=== PATIENT | female | born 1950 | race Hispanic/Latino ===

== ENCOUNTER 2019-08-09 17:28 | Inpatient (IN) | payer OTHER, MEDICARE ==
[~2019-08-09] VITALS: Ht 165.1 cm; Wt 63.0 kg
[2019-08-09] MEDS ORDERED: METRONIDAZOLE 500MG/NS 100ML 100 ML IV STA (18:15)
[2019-08-09] MEDS ORDERED: SODIUM CHLORIDE 0.9% 1000ML 1,000 ML IV STA ×2 (18:18)
[2019-08-09] MEDS ORDERED: MORPHINE SULFATE 2 MG/ML SYR 1ML IV NR (18:30)
[2019-08-09] MEDS ORDERED: ONDANSETRON HCL INJ 2MG/ML 2ML 2 MG/ML VIAL IV NR (18:30)
[2019-08-09] MEDS ORDERED: CIPROFLOXACIN 400 MG/D5W 200ML 200 ML IV ONE (18:30)
[2019-08-09 18:47] LABS: BASOPHILS % 0.4 % (0.0-1.0); EOSINOPHILS # (AUTO) 0.2 (0.0-0.4); EOSINOPHILS % 2.1 % (0.0-6.0); HEMATOCRIT 33.7 % (34.2-44.1); HEMOGLOBIN 11.4 g/dL (12.0-16.0); LYMPHOCYTES # (AUTO) 1.8 (1.0-3.2); LYMPHOCYTES % 25.8 % (18.0-39.1); MEAN CORPUSCULAR HEMOGLOBIN 29.3 pg (28-32); MEAN CORPUSCULAR HGB CONC 33.8 g/dL (31-35); MEAN CORPUSCULAR VOLUME 86.6 fL (81-99); MONOCYTES # (AUTO) 0.4 (0.2-0.8); MONOCYTES % 5.5 % (4.4-11.3); NEUTROPHILS # (AUTO) 4.7 (2.1-6.9); NEUTROPHILS % 65.9 % (38.7-80.0); PLATELET COUNT 238 x10e3/uL (140-360); RED BLOOD COUNT 3.89 x10e6/uL (3.6-5.1); RED CELL DISTRIBUTION WIDTH 12.2 % (11.7-14.4)
[2019-08-09 18:51] LABS: INR 0.95; PROTHROMBIN TIME 13.2 seconds (11.9-14.5)
[2019-08-09 18:52] LABS: PARTIAL THROMBOPLASTIN TIME 35.9 seconds (23.8-35.5)
--- NOTE | 2019-08-09 18:58 | Diagnostic Imaging Report ---
EXAMINATION: CHEST SINGLE (PORTABLE) INDICATION: ^ERMD ORDER ^[id number] ^1840 ^Y COMPARISON: None FINDINGS: AP view TUBES and LINES: None. LUNGS: Lungs are well inflated. Mild central vascular congestion. Minimal left basilar subsegmental atelectasis. PLEURA: No significant pleural effusion or pneumothorax. HEART AND MEDIASTINUM: The cardiac silhouette is mildly prominent. Thickening of the right paratracheal stripe. BONES AND SOFT TISSUES: No acute osseous lesion. Soft tissues are unremarkable. UPPER ABDOMEN: No free air under the diaphragm. IMPRESSION: Mild central vascular congestion. Mild left basilar subsegmental atelectasis. Signed by: Dr. Cecilio Silva MD on 08/09/2019 6:54 PM
[2019-08-09 19:01] LABS: ALANINE AMINOTRANSFERASE 13 IU/L (0-55); ALBUMIN 3.8 g/dL (3.5-5.0); ALBUMIN/GLOBULIN RATIO 1.2 (0.8-2.0); ALKALINE PHOSPHATASE 54 IU/L (40-150); ANION GAP 11.9 mmol/L (8-16); BLOOD UREA NITROGEN 10 mg/dL (7-26); BUN/CREATININE RATIO 12 (6-25); CALCIUM 9.1 mg/dL (8.4-10.2); CARBON DIOXIDE 24 mmol/L (22-29); CHLORIDE 103 mmol/L (98-107); CREATINE KINASE 77 IU/L (29-168); CREATININE, SERUM 0.85 mg/dL (0.57-1.11); EST GLOMERULAR FILTRATION RATE > 60 ML/MIN (60-); GLUCOSE 97 mg/dL (74-118); LIPASE 22 U/L (8-78); MAGNESIUM 1.9 MG/DL (1.3-2.1); POTASSIUM 3.9 mmol/L (3.5-5.1); SODIUM 135 mmol/L (136-145)
--- OUTSIDE RECORDS SUMMARY | 2019-08-09 19:11 | XMS REPORT ---
Author Author [facility] Address Unknown Phone Unavailable Care Team Providers Care Emr Analyst Name Role Phone RODERICK CR Unavailable Unavailable Problems This patient has no known problems. Allergies, Adverse Reactions, Alerts This patient has no known allergies or adverse reactions. Medications This patient has no known medications. Encounters Start Date/Time End Date/Time Encounter Type Admission Type Attending Clinicians Care Facility Care Department Encounter ID 2019-08-06 15:05:00 2019-08-06 15:05:00 Emergency E [id number] Results Test Description Test Time Test Comments Text Results Atomic Results Result Comments CHEST SINGLE (PORTABLE) 2019-08-09 18:53:[address] [address] Patient Name: FLETCHER ZULUAGA MR #: [id number] : 1950 Age/Sex: 68/F Req #: [id number] Adm Physician: Ordered by: SHAYE MARSH, RODERICK MARSH Report #: [id number] Location: ER Room/Bed: Procedure: [id number] DX/CHEST SINGLE (PORTABLE) Exam Date: 08/09/19 Exam Time: 1839 REPORT STATUS: Signed EXAMINATION: CHEST SINGLE (PORTABLE) IND ICATION: ERMD ORDER [id number] Y COMPARISON: None FINDINGS: AP view TUBES and LINES: None. LUNGS: Lungs are well inflated. Mild central vascular congestion. Minimal left basilar subsegmental atelectasis. PLEURA: No significant pleural effusion or pneumothorax. HEART AND MEDIASTINUM: The cardiac silhouette is mildly prominent. Thickening of the right paratracheal stripe. BONES AND SOFT TISSUES: No acute osseous lesion. Soft tissues are unremarkable. UPPER ABDOMEN: No free air under the diaphragm. IMPRESSION: Mild central vascular congestion. Mild left basilar subsegmental atelectasis. Signed by: Dr. Cecilio Schaefer MD on 08/09/2019 6:54 PM Dictated By: CECILIO SCHAEFER MD 53 Transcribed By: LITA on 08/09/191853 COPY TO: RODERICK CR
[2019-08-09] MEDS ORDERED: CIPROFLOXACIN 400 MG/D5W 200ML 200 ML IV SCH (19:30)
[2019-08-09 20:00] VITALS: BP 130/58
--- NOTE | 2019-08-09 20:28 | Diagnostic Imaging Report ---
EXAM: CT Abdomen and Pelvis WITH contrast INDICATION: Rectal pain. ^IV AND ORAL ^[id number] ^1958 COMPARISON: None. TECHNIQUE: Abdomen and pelvis were scanned utilizing a multidetector helical scanner from the lung base to the pubic symphysis after administration of IV contrast. Coronal and sagittal reformations were obtained. Dose modulation, iterative reconstruction, and/or weight based adjustment of the mA/kV was utilized to reduce the radiation dose to as low as reasonably achievable. Routine protocol was performed. Scan was performed when during portal venous phase. IV CONTRAST: 100 mL of Isovue-370 ORAL CONTRAST: Water COMPLICATIONS: None RADIATION DOSE: Total DLP: 240.34 mGy*cm Estimated effective dose: (DLP x 0.015 x size factor) mSv CTDIvol has been reviewed. It is below the limits set by the Radiation Protocol Committee (RPC). FINDINGS: LINES and TUBES: None. LOWER THORAX: Small bilateral pleural effusions partially seen lingular atelectasis/scarring. HEPATOBILIARY: Hepatomegaly. No hepatic mass. 1.5 cm segment 4 hypodensity, probably a cyst. No biliary ductal dilation. GALLBLADDER: No radio-opaque stones or sludge. No wall thickening. SPLEEN: No splenomegaly. Tiny calcified granulomas. PANCREAS: No focal masses or ductal dilatation. ADRENALS: No adrenal nodules KIDNEYS/URETERS: Absent left kidney. Right kidney is unremarkable. No hydronephrosis or stones. Midpole subcentimeter hypodensity is too small to characterize. GI TRACT: No abnormal distention or evidence of bowel obstruction. Mild lower rectal wall thickening with adjacent fat stranding (series 2, image 71). Appendix is not visualized. Small hiatal hernia. PELVIC ORGANS/BLADDER: Unremarkable. LYMPH NODES: No lymphadenopathy. VESSELS: Unremarkable. PERITONEUM / RETROPERITONEUM: No free air. Trace pelvic free fluid. BONES: Unremarkable. SOFT TISSUES: Right perineal focus of air versus a seton (series 2, image 84) with adjacent soft tissue thickening. No discrete fluid collection to suggest abscess formation. IMPRESSION: 1. Mild lower rectal wall thickening with adjacent minimal fat stranding , could represent proctitis in the appropriate clinical context. Otherwise, no acute inflammatory process in the abdomen/pelvis. 2. Right perineal focus of air versus a seton with adjacent soft tissue thickening. No discrete fluid collection to suggest abscess formation. 3. Absent left kidney. 4. Small bilateral pleural effusions as well as a trace pelvic free fluid. 5. Small hiatal hernia. Signed by: Dr. Cecilio Silva MD on 08/09/2019 8:24 PM
[2019-08-09 20:40] VITALS: BP 130/58
--- NOTE | 2019-08-09 20:40 | NUR ---
Patient arrived via stretcher to the unit accompanied by her . Patient is A&Ox3 and walking around room. Received report from LOKESH Cho nurse. Call light within reach.
[2019-08-09 20:56] VITALS: BP 130/58
[2019-08-09 20:56] LABS: BILIRUBIN,URINE NEGATIVE (NEGATIVE); CLARITY,URINE SL CLOUDY (CLEAR); COLOR,URINE YELLOW (YELLOW); KETONES,URINE TRACE (NEGATIVE); LEUKOCYTE ESTERASE ,URINE NEGATIVE (NEGATIVE); NITRITE,URINE NEGATIVE (NEGATIVE); PROTEIN,URINE DIPSTICK NEGATIVE (NEGATIVE); URINE UROBILINOGEN 0.2 mg/dL (0.2 - 1)
[2019-08-09 21:08] LABS: BACTERIA,URINE MODERATE /HPF; EPITHELIAL CELLS,URINE FEW /LPF
[2019-08-09] MEDS: SODIUM CHLORIDE 0.9% 1000ML 1,000 ML IV SCH (21:30)
[2019-08-09] MEDS: ONDANSETRON HCL INJ 2MG/ML 2ML 2 MG/ML VIAL IV PRN (21:30)
[2019-08-09] MEDS: MORPHINE SULFATE 2 MG/ML SYR 1ML IV PRN (21:30)
[2019-08-09] MEDS ORDERED: IOPAMIDOL 370 MG/ML 200 ML INFUS..BTL INJ ONE (22:06)
[2019-08-09] MEDS ORDERED: SODIUM CHLORIDE 0.9% 50ML 50 ML ONE (22:06)
--- NOTE | 2019-08-09 22:50 | NUR ---
Called and talked to Dr. Rachel Weber about the consult and he said to call Dr. Rivera because Dr. Rivera is covering for him. Called Dr. Rivera office and waiting for him to call back
[2019-08-09] MEDS ORDERED: PRAVASTATIN SOD20 MG (23:02)
[2019-08-09] MEDS ORDERED: LEVOTHYROXINE88 MCG (23:02)
[2019-08-09] MEDS ORDERED: FANAPT8 MG PO (23:02)
[2019-08-09] MEDS: METRONIDAZOLE 500MG/NS 100ML 100 ML IV SCH (23:51)
[2019-08-10] VITALS (8 sets, daily range): BP systolic 114–140; BP diastolic 51–88
[2019-08-10] MEDS: SODIUM CHLORIDE 0.9% 1000ML 1,000 ML IV SCH ×3 (04:40→18:37)
[2019-08-10] MEDS: CIPROFLOXACIN 400 MG/D5W 200ML 200 ML IV SCH ×2 (05:35→17:17)
[2019-08-10 05:41] LABS: BASOPHILS % 0.6 % (0.0-1.0); EOSINOPHILS # (AUTO) 0.2 (0.0-0.4); EOSINOPHILS % 3.3 % (0.0-6.0); HEMATOCRIT 31.9 % (34.2-44.1); HEMOGLOBIN 10.7 g/dL (12.0-16.0); LYMPHOCYTES # (AUTO) 1.8 (1.0-3.2); LYMPHOCYTES % 24.8 % (18.0-39.1); MEAN CORPUSCULAR HEMOGLOBIN 29.5 pg (28-32); MEAN CORPUSCULAR HGB CONC 33.5 g/dL (31-35); MEAN CORPUSCULAR VOLUME 87.9 fL (81-99); MONOCYTES # (AUTO) 0.5 (0.2-0.8); MONOCYTES % 6.7 % (4.4-11.3); NEUTROPHILS # (AUTO) 4.6 (2.1-6.9); NEUTROPHILS % 64.3 % (38.7-80.0); PLATELET COUNT 225 x10e3/uL (140-360); RED BLOOD COUNT 3.63 x10e6/uL (3.6-5.1); RED CELL DISTRIBUTION WIDTH 12.2 % (11.7-14.4)
[2019-08-10 06:02] LABS: ALANINE AMINOTRANSFERASE 12 IU/L (0-55); ALBUMIN 3.3 g/dL (3.5-5.0); ALBUMIN/GLOBULIN RATIO 1.1 (0.8-2.0); ALKALINE PHOSPHATASE 49 IU/L (40-150); ANION GAP 10.7 mmol/L (8-16); BLOOD UREA NITROGEN 7 mg/dL (7-26); BUN/CREATININE RATIO 9 (6-25); CALCIUM 8.3 mg/dL (8.4-10.2); CARBON DIOXIDE 23 mmol/L (22-29); CHLORIDE 107 mmol/L (98-107); CREATININE, SERUM 0.79 mg/dL (0.57-1.11); EST GLOMERULAR FILTRATION RATE > 60 ML/MIN (60-); GLUCOSE 92 mg/dL (74-118); LIPASE 9 U/L (8-78); POTASSIUM 3.7 mmol/L (3.5-5.1); SODIUM 137 mmol/L (136-145)
[2019-08-10] MEDS: METRONIDAZOLE 500MG/NS 100ML 100 ML IV SCH ×3 (06:41→18:56)
--- NOTE | 2019-08-10 07:11 | NUR ---
Gave report to oncoming nurse. Call light within reach. Patient in bed.
--- NOTE | 2019-08-10 07:40 | NUR ---
PATIENT IS AWAKE, ALERT, AND IN STABLE CONDITION WITH NO S/S OF RESPIRATORY DISTRESS. PATIENT C/O RECTUM PAIN 04/30. IV FLUIDS INFUSING. BED ALARM APPLIED. CALL LIGHT IS WITHIN REACH OF PATIENT, PATIENT INSTRUCTED TO CALL FOR ASSISTANCE NEEDED.
[2019-08-10] MEDS: ONDANSETRON HCL INJ 2MG/ML 2ML 2 MG/ML VIAL IV PRN ×2 (08:25→15:00)
[2019-08-10] MEDS: MORPHINE SULFATE 2 MG/ML SYR 1ML IV PRN ×2 (08:26→15:00)
[2019-08-10] MEDS: FANAPT 8 MG PO SCH (17:17)
[2019-08-10] MEDS ORDERED: PEG (High)/E-LYTE SOLN 4,000 ML BTL PO ONE (18:00)
[2019-08-10 19:04] LABS: FERRITIN 131.19 ng/mL (4.63-204.00)
--- NOTE | 2019-08-10 19:17 | NUR ---
PATIENT IS IN STABLE CONDITION WITH NO S/S OF RESPIRATORY DISTRESS. NO PAIN VOICED. IV ANTIBIOTIC INFUSING. BED ALARM ON. CALL LIGHT IS WITHIN REACH, PATIENT INSTRUCTED TO CALL FOR ASSISTANCE NEEDED. REPORT GIVEN TO ONCOMING NURSE.
[2019-08-10] MEDS: PRAVASTATIN 20 MG TAB PO SCH (21:45)
--- NOTE | 2019-08-10 22:11 | History and Physical ---
PRIMARY CARE PHYSICIAN: Dr. Mendoza with [facility]. CHIEF COMPLAINT: Rectal pain. HISTORY OF PRESENT ILLNESS: This is a 68-year-old female with past medical history of high cholesterol, hypothyroidism, and paranoid schizophrenia, presented with rectal pain that has been present for six days. She initially went to [facility], was given Preparation-H and remedies for hemorrhoid and was sent home. The pain and symptoms did not improve, so she went to see her PCP, Dr. Mendoza yesterday evening and was instructed to come to the ER for further evaluation. She denies any fever, chills, melena, abdominal pain, nausea, or vomiting. In the ER, CT abdomen and pelvis showed mild lower rectal wall thickening with adjacent minimal fat stranding that could represent proctitis. GI has been consulted and admitted for further evaluation. PAST MEDICAL HISTORY: 1. Hypothyroidism. 2. High cholesterol. 3. Paranoid schizophrenia. PAST SURGICAL HISTORY: 1. x2. 2. Cyst removal. 3. Jaw surgery. 4. Appendectomy. 5. Tubal ligation. FAMILY MEDICAL HISTORY: Reports father had diabetes and mother had heart disease. SOCIAL HISTORY: She denies any tobacco, alcohol, or drug use. ALLERGIES: NO KNOWN ALLERGIES. REVIEW OF SYSTEMS: GENERAL: Fatigue. HEENT: No head trauma. LUNGS: No shortness of breath or cough. CARDIOVASCULAR: No chest pain or palpitations. GI: No nausea, vomiting. Has rectal pain, especially when moving bowels. NEURO: No dizziness. SKIN: No rash. PHYSICAL EXAMINATION: VITAL SIGNS: Temperature 98.9, pulse is 56, respirations 18, blood pressure 114/51, pulse ox is 98% on room air. GENERAL: No acute distress. HEENT: Normocephalic, atraumatic. NECK: Supple. LUNGS: Clear to auscultation. CARDIOVASCULAR: Regular rate and rhythm. GI: Abdomen soft and nontender. Rectal pain, constant. NEUROLOGIC: Alert, awake, and oriented x3. MUSCULOSKELETAL: Moves all extremities. SKIN: Dry and intact. PSYCH: Calm. LABORATORY DATA: WBC 7.06, hemoglobin 10.7, and hematocrit 31.9, and platelet is 225. Sodium is 137, potassium is 3.7, creatinine is 0.79, estimated GFR is greater than 60. Coagulation PT is 13.2, INR is 0.95, APTT is 35.9. UA, clarity is cloudy with trace ketones, no leukocyte esterase with moderate bacteria. Microbiology, urine culture is pending. IMAGING: Chest x-ray, mild central vascular congestion and basilar subsegmental atelectasis. CT abdomen and pelvis as reported above with possible proctitis. Also noted right perineal focus of air versus seton with adjacent soft tissue thickening. No discrete fluid collection to suggest abscess formation. Absent left kidney. Small bilateral pleural effusion and small hiatal hernia noted. IMPRESSION AND PLAN: 1. Rectal pain. Continue on Cipro and Flagyl. We will manage pain as needed with morphine [address] with possible proctitis. GI on the case. We will continue clear liquid diet. 2. Hypothyroidism. We will resume home dose of levothyroxine 88 mcg. 3. High cholesterol. Continue statin. 4. Paranoid schizophrenia. We will resume home medicine Fanapt 8 mg b.i.d. 5. Deep vein thrombosis prophylaxis. We will not indicated ambulatory. Plan, pending GI eval. Dictated by ZARINA Gomez Tracy Nava MD MY/MODL /[id number]
[2019-08-11] VITALS (8 sets, daily range): BP systolic 126–150; BP diastolic 64–95
--- NOTE | 2019-08-11 00:08 | Consultation ---
DATE OF CONSULTATION: HISTORY OF PRESENT ILLNESS: Ms. Ames is a 68-year-old lady with history of hyperlipidemia, hypothyroidism, schizophrenia, came to the hospital few days ago when she started having rectal bleed, constant. No blood per rectum. No change in bowel habit. No chills or fever. No nausea or vomiting. No abdominal pain. No weight loss recently. No heartburn or acid reflux. She had CT scan of the abdomen, pelvic with contrast revealed rectal wall thickening and possible proctitis and I will see her for evaluation. CURRENT MEDICATIONS: 1. Zofran. 2. Morphine. 3. Flagyl. 4. Cipro. 5. Levothyroxine. ALLERGIES: NIL. PAST SURGICAL HISTORY: Two , appendectomy, left breast biopsy. SOCIAL HISTORY: Does not smoke or drink. PHYSICAL EXAMINATION: On exam, hemodynamically stable, afebrile. LABORATORY DATA: White cell count 7, hemoglobin 11, hematocrit 32, platelet 225. Comprehensive panel normal. Urinalysis normal. Urine culture is still pending. IMPRESSION: Rectal discomfort, abnormal rectal wall thickening on CT scan, possible proctitis. We will plan for colonoscopy in the morning. No other workup as far as the mild anemia. We will order iron studies, RBC, folate, reticulocyte count, B12. She may need upper GI tract evaluation, which can be done as an outpatient. Hailey Rivera MD RD/MODL /[id number]
--- NOTE | 2019-08-11 00:20 | NUR ---
Pt is taking golytely.has bowel movement.bed locked and in lowest position.phone and call light within reach.instructed to call for assistance as needed.
[2019-08-11] MEDS: METRONIDAZOLE 500MG/NS 100ML 100 ML IV SCH ×4 (00:31→19:45)
[2019-08-11] MEDS: SODIUM CHLORIDE 0.9% 1000ML 1,000 ML IV SCH ×3 (03:22→18:05)
[2019-08-11] MEDS: CIPROFLOXACIN 400 MG/D5W 200ML 200 ML IV SCH ×2 (05:06→17:57)
--- NOTE | 2019-08-11 05:25 | NUR ---
Has multiple times of bowelmovement.but not cleared.
[2019-08-11] MEDS: LEVOTHYROXINE SODIUM 88 MCG TAB PO SCH (05:47)
--- NOTE | 2019-08-11 06:02 | NUR ---
consent signed.due medication given.
--- NOTE | 2019-08-11 06:55 | NUR ---
Bed side shift report given to the oncoming Rn.stable condition.
[2019-08-11] MEDS ORDERED: CITRATE OF MAGNESIA 300ML BOTTLE PO ONE (07:00)
--- NOTE | 2019-08-11 07:00 | NUR ---
PATIENT IS ALERT AND IN STABLE CONDITION WITH NO S/S OF RESPIRATORY DISTRESS. NO PAIN VOICED. IV FLUIDS INFUSING. BEDSIDE COMMODE AVAILABLE NEAR PATIENT'S BED. BED ALARM APPLIED. CALL LIGHT IS WITHIN REACH OF PATIENT, PATIENT INSTRUCTED TO CALL FOR ASSISTANCE NEEDED.
[2019-08-11] MEDS: FANAPT 8 MG PO SCH ×2 (07:49→17:57)
[2019-08-11] MEDS: ONDANSETRON HCL INJ 2MG/ML 2ML 2 MG/ML VIAL IV PRN (09:29)
--- NOTE | 2019-08-11 15:29 | NUR ---
PATIENT OFF THE UNIT PER STRETCHER TO THE OR FOR COLONOSCOPY.
[2019-08-11] MEDS ORDERED: IRON SUCROSE 100 MG in SODIUM CHLORIDE 0.9% 100 ML 100 ML IV SCH ×2 (16:30→21:00)
--- NOTE | 2019-08-11 17:58 | NUR ---
PATIENT BACK ON THE UNIT PER STRETCHER FROM RECOVERY. PATIENT IS IN STABLE CONDITION WITH NO S/S OF RESPIRATORY DISTRESS. NO C/O PAIN. IV CIPRO INFUSING. PRESENT IN ROOM. DINNER TRAY DELIVERED FOR PATIENT. BEDSIDE COMMODE NEAR BEDSIDE. CALL LIGHT IS WITHIN REACH OF PATIENT, PATIENT INSTRUCTED TO CALL FOR ASSISTANCE NEEDED.
[2019-08-11] MEDS ORDERED: PROPOFOL IV EMULSION 10 MG/ML 20 ML VIAL ONE (18:08)
--- NOTE | 2019-08-11 18:48 | NUR ---
PATIENT IS ALERT AND IN STABLE CONDITION WITH NO S/S OF RESPIRATORY DISTRESS. PATIENT DENIES PAIN AT THIS TIME. IV ANTIBIOTIC INFUSING. CALL LIGHT IS WITHIN REACH OF PATIENT- PATIENT INSTRUCTED TO CALL FOR ASSISTANCE NEEDED. REPORT GIVEN TO ONCOMING NURSE.
--- NOTE | 2019-08-11 18:59 | Progress Note ---
DATE: 08/11/2019 CHIEF COMPLAINT: Rectal pain. SUBJECTIVE: No events overnight. N.p.o. for colonoscopy status post bowel prep. PHYSICAL EXAMINATION: VITAL SIGNS: Temp 97.9, pulse is 47, respirations 18, blood pressure 140/64, pulse ox 97% on room air. GENERAL: No acute distress. HEENT: Normocephalic and atraumatic. NECK: Supple. LUNGS: Clear to auscultation. CARDIOVASCULAR: Regular rate and rhythm. GI: Abdomen is soft and nontender. RECTAL: Pain improving. NEUROLOGIC: Alert, awake, and oriented x3. MUSCULOSKELETAL: Moves all extremities. SKIN: Dry and intact. PSYCH: Calm. LABORATORY DATA: Iron 20, percent saturation 9, vitamin B12 of 526. RBC folate is pending. Urine culture is likely contaminated. IMPRESSION: 1. Rectal pain. Continue Flagyl and Cipro. Pain management as needed. CT with possible proctitis. GI has planned colonoscopy today. 2. Hypothyroidism. Continue levothyroxine 88 mcg daily. 3. High cholesterol, on statin. 4. Paranoid schizophrenia, we will resume her home medication. 5. Deep vein thrombosis prophylaxis, SCDs. We will hold chemical anticoagulation. Dictated by ZARINA Gomez Tracy Nava MD MY/MODL /[id number]
--- NOTE | 2019-08-11 19:10 | NUR ---
Bed side shift report taken from morning Jerrica in the bed.stable condition.
[2019-08-11] MEDS: PRAVASTATIN 20 MG TAB PO SCH (20:55)
[2019-08-12] VITALS: BP 135/62
[2019-08-12] MEDS: METRONIDAZOLE 500MG/NS 100ML 100 ML IV SCH ×2 (00:12→06:36)
--- NOTE | 2019-08-12 02:41 | NUR ---
Resting in the bed.no pain voiced.iv fluid infusing.bed locked and in lowest position.phone and call light within reach.instructed to call for assistance as needed.
[2019-08-12 04:00] VITALS: BP 120/56
[2019-08-12] MEDS: CIPROFLOXACIN 400 MG/D5W 200ML 200 ML IV SCH (04:50)
[2019-08-12] MEDS: LEVOTHYROXINE SODIUM 88 MCG TAB PO SCH (06:00)
[2019-08-12 06:13] LABS: BASOPHILS % 0.8 % (0.0-1.0); EOSINOPHILS # (AUTO) 0.2 (0.0-0.4); EOSINOPHILS % 4.4 % (0.0-6.0); HEMATOCRIT 34.1 % (34.2-44.1); HEMOGLOBIN 11.7 g/dL (12.0-16.0); LYMPHOCYTES # (AUTO) 1.5 (1.0-3.2); MEAN CORPUSCULAR HEMOGLOBIN 29.5 pg (28-32); MEAN CORPUSCULAR HGB CONC 34.3 g/dL (31-35); MEAN CORPUSCULAR VOLUME 85.9 fL (81-99); MONOCYTES # (AUTO) 0.4 (0.2-0.8); MONOCYTES % 6.7 % (4.4-11.3); NEUTROPHILS # (AUTO) 3.1 (2.1-6.9); NEUTROPHILS % 58.9 % (38.7-80.0); PLATELET COUNT 269 x10e3/uL (140-360); RED BLOOD COUNT 3.97 x10e6/uL (3.6-5.1); RED CELL DISTRIBUTION WIDTH 11.9 % (11.7-14.4)
--- NOTE | 2019-08-12 06:15 | NUR ---
New iv started to L.hand .patent.
[2019-08-12] MEDS: SODIUM CHLORIDE 0.9% 1000ML 1,000 ML IV SCH (06:36)
[2019-08-12 06:40] LABS: ANION GAP 11.7 mmol/L (8-16); BLOOD UREA NITROGEN 6 mg/dL (7-26); BUN/CREATININE RATIO 8 (6-25); CALCIUM 8.8 mg/dL (8.4-10.2); CARBON DIOXIDE 21 mmol/L (22-29); CHLORIDE 106 mmol/L (98-107); CREATININE, SERUM 0.78 mg/dL (0.57-1.11); EST GLOMERULAR FILTRATION RATE > 60 ML/MIN (60-); GLUCOSE 86 mg/dL (74-118); POTASSIUM 3.7 mmol/L (3.5-5.1); SODIUM 135 mmol/L (136-145)
--- NOTE | 2019-08-12 06:54 | NUR ---
Bed side shift report given to oncoming Rn.stable condition.
[2019-08-12 07:30] VITALS: BP 143/63
--- NOTE | 2019-08-12 07:30 | NUR ---
PT UP IN BED SLEEPING,NO DITRESS NOTED,DENIES PAIN.
[2019-08-12 08:00] VITALS: BP 143/63
[2019-08-12] MEDS: FANAPT 8 MG PO SCH (09:00)
[2019-08-12] MEDS ORDERED: METRONIDAZOLE500 MG PO (10:08)
[2019-08-12] MEDS ORDERED: CIPRO500 MG PO (10:08)
[2019-08-12 12:00] VITALS: BP 131/57
--- NOTE | 2019-08-12 12:12 | NUR ---
PT DISCHARGED HOME,IV DCD WITHOUT RDNESS OR SWELLING,PRESCRIPTIONS AND INSTRUCTIONS GIVEN COPY ON CHART.TRANSPORTED TO [facility] W/C
--- NOTE | 2019-08-13 04:39 | Discharge Summary ---
PRIMARY CARE PHYSICIAN: Dr. Mendoza with [facility]. FINAL DIAGNOSES: 1. Rectal pain, likely due to proctitis. 2. Hypothyroidism. 3. High cholesterol. 4. Paranoid schizophrenia. CONSULTANTS: Dr. Danial Weber with GI. PROCEDURES: Colonoscopy was noted a small bone foreign substance. HISTORY: Per HPI. HOSPITAL COURSE: This is a 68-year-old female with past medical history of high cholesterol, hypothyroidism, and paranoid schizophrenia, presented with a few days of rectal pain. Imaging showed soft tissue thickness with no discrete fluid collection to suggest abscess formation likely due to proctitis. GI was consulted, she underwent a bowel prep and started on Cipro and Flagyl for possible colitis. She underwent colonoscopy and was able to remove a small foreign body which looked like a bone has been sent to labs for pathology. She denies any history of ingesting or inserting any bone. She is tolerating diet. Vital signs stable. Rectal pain has resolved. We will discharge home to follow up with PCP. PHYSICAL EXAMINATION: VITAL SIGNS: Temperature is 97.8, pulse 54, respirations 20, blood pressure 143/63, pulse ox 96% on room air. GENERAL: No acute distress. HEENT: Normocephalic, atraumatic. NECK: Supple. LUNGS: Clear to auscultation. CARDIOVASCULAR: Regular rate and rhythm. GI: Abdomen is soft and nontender. RECTAL: Pain has resolved. NEUROLOGIC: Alert, awake, and oriented x3. MUSCULOSKELETAL: Moves all extremities. No edema. SKIN: Dry and intact. CONDITION AT DISCHARGE: Improved and stable. DISCHARGE MEDICATIONS: See medication reconciliation list. FOLLOWUP: Follow up with PCP and GI in 1 to 2 weeks. TIME SPENT: Total time of discharge is 35 minutes. Dictated by ZARINA Gomez Tracy Nava MD MY/MODL /[id number] cc: Dr. Mendoza [facility]
== END 2019-08-12 12:12 | disposition home or self-care (01) | DRG 394 ==
LOC: ER 17:28 → ERHOLD 18:46 → MED/SURG3 20:40
PROVIDERS: ADMIT Internal Medicine; ATTEND Internal Medicine
PROC: 0DCP8ZZ Extirpation of Matter from Rectum, Via Natural or Artificial Opening Endoscopic (ICD-10-PCS; principal; 2019-08-11 16:12)
DX: K62.89 Other specified diseases of anus and rectum (principal); F20.0 Paranoid schizophrenia; E03.9 Hypothyroidism, unspecified; E78.00 Pure hypercholesterolemia, unspecified; K64.8 Other hemorrhoids; T18.4XXA Foreign body in colon, initial encounter; X58.XXXA Exposure to other specified factors, initial encounter; Z83.3 Family history of diabetes mellitus; Z82.49 Family history of ischemic heart disease and other diseases of the circulatory system
CPT/HCPCS: 36415; 45378; 71045; 74177; 80048; 80053; 81001; 82550; 82553; 82607; 82728; 82747; 83540; 83690; 83735; 84466; 84484; 85025; 85045; 85610; 85730; 87086; 88300; 93005; 99284; J1756; J2270; J2405; J7030; Q9967